=== PATIENT | female | born 1950 | race Two or more races ===

== ENCOUNTER 2021-01-22 07:28 | Outpatient (CLI) | payer OTHER | END 2021-01-22 07:36 | disposition home or self-care (01) | LOC: MAMO-SONO 07:28 | PROVIDERS: ATTEND Specialist | DX: Z12.31 Encounter for screening mammogram for malignant neoplasm of breast (principal); Z87.898 Personal history of other specified conditions; N64.89 Other specified disorders of breast; Z13.820 Encounter for screening for osteoporosis; M81.0 Age-related osteoporosis without current pathological fracture; R05 Cough ==

== ENCOUNTER 2021-01-22 10:26 | Outpatient (CLI) | payer OTHER | END 2021-01-22 10:27 | disposition home or self-care (01) | LOC: NUCLEAR 10:26 | PROVIDERS: ATTEND Specialist | DX: M81.0 Age-related osteoporosis without current pathological fracture (principal) ==

== ENCOUNTER → 2021-01-22 12:21 | Outpatient (CLI) | payer OTHER | END | disposition home or self-care (01) | LOC: LAB | PROVIDERS: ATTEND Specialist | DX: J44.9 Chronic obstructive pulmonary disease, unspecified (principal); I11.9 Hypertensive heart disease without heart failure; R19.5 Other fecal abnormalities; E78.2 Mixed hyperlipidemia; R80.1 Persistent proteinuria, unspecified; E03.8 Other specified hypothyroidism; E11.69 Type 2 diabetes mellitus with other specified complication; I10 Essential (primary) hypertension; Z12.11 Encounter for screening for malignant neoplasm of colon ==

== ENCOUNTER 2021-06-20 08:00 | Outpatient (CLI) | payer OTHER | END 2021-06-20 08:30 | disposition home or self-care (01) | LOC: PPH VACUNA 08:00 | PROVIDERS: ATTEND Emergency Medicine Pediatric Emergency Medicine | DX: Z23 Encounter for immunization (principal) ==

== ENCOUNTER 2022-03-07 10:38 | Outpatient (CLI) | payer OTHER | END 2022-03-07 10:51 | disposition home or self-care (01) | LOC: MAMO-SONO 10:38 | PROVIDERS: ATTEND Specialist | DX: Z12.31 Encounter for screening mammogram for malignant neoplasm of breast (principal) ==

== ENCOUNTER 2022-09-30 15:25 | Outpatient (CLI) | payer OTHER | END 2022-09-30 15:33 | disposition home or self-care (01) | LOC: RAD 15:25 | DX: Z00.00 Encounter for general adult medical examination without abnormal findings (principal) ==

== ENCOUNTER 2023-02-19 12:34 | Outpatient (CLI) | payer OTHER | END 2023-02-19 12:35 | disposition home or self-care (01) | LOC: NUCLEAR 12:34 | DX: M81.0 Age-related osteoporosis without current pathological fracture (principal); Z13.820 Encounter for screening for osteoporosis ==

== ENCOUNTER 2024-03-18 13:27 | Outpatient (CLI) | payer OTHER | END 2024-03-18 13:33 | disposition home or self-care (01) | LOC: MAMO-SONO 13:27 | PROVIDERS: ATTEND General Practice | DX: Z12.31 Encounter for screening mammogram for malignant neoplasm of breast (principal) ==

== ENCOUNTER 2025-03-17 11:56 | Outpatient (CLI) | payer OTHER | END 2025-03-17 11:57 | disposition home or self-care (01) | LOC: NUCLEAR 11:56 | PROVIDERS: ATTEND General Practice | DX: Z13.820 Encounter for screening for osteoporosis (principal); M81.0 Age-related osteoporosis without current pathological fracture ==

== ENCOUNTER 2025-07-27 12:26 | Outpatient (CLI) | payer OTHER ==
[~2025-07-27 12:26] MED LIST: ATORVALIQ20 MG/5 ML; BUDESONIDE0.5 MG/2 M IH; COZAAR100 MG; GLIPIZIDE XL2.5 MG; IPRATROPIU0.2 MG/1 M IH; ROSUVASTATIN CA20 MG; TUSSIN DM LIQU118 ML PO; XOPENEX CO1.25 MG/0. IH
== END 2025-07-27 12:47 | disposition home or self-care (01) ==
LOC: MAMO-SONO 12:26
PROVIDERS: ATTEND Specialist
DX: Z12.31 Encounter for screening mammogram for malignant neoplasm of breast (principal)